=== PATIENT | male | born 1950 | race Caucasian/White ===

== ENCOUNTER 2017-11-06 08:01 | Outpatient (CLI) | payer MEDICARE, OTHER ==
--- NOTE | 2017-11-05 09:10 | Conscious Sedation/ASA ---
Conscious Sedation Pre-Proced Time Reviewed: 09:05 ASA Class: 2 Airway Mallampati Classification: ([place] appropriate class) I. II. III, IV Lungs Heart ASA score ASA 1: a normal healthy patient ASA 2: a patient with a mild systemic disease (mid diabetes, controlled hypertension, obesity ASA 3: a patient with a severe systemic disease that limits activity (angina , COPD, prior Myocardial infarction) ASA 4: a patient with an incapacitating disease that is a constant threat to life (CHF, renal failure) ASA 5: a moribund patient not expected to survive 24 hrs. (ruptured aneurysm) ASA 6: a declared brain patient whose organs are being harvested. For emergent operations, add the letter E after the classification Grade 2 Sedation Plan: Analgesia, Amnesia, Plan communicated to team members, Discussed options with patient/fam, Discussed risks with patient/fam Note The patient is an appropriate candidate to undergo the planned procedure, sedation, and anesthesia. The patient immediately re-assessed prior to indication. VIMAL THURSTON MD Nov 05, 2017 9:10 am
--- NOTE | 2017-11-05 09:11 | Progress Note-Pre Operative ---
Pre-Operative Progress Note H&P Reviewed The H&P was reviewed, patient examined and no changes noted. Date Seen by Provider: Nov 05, 2017 Time Seen by Provider: 09:05 Date H&P Reviewed: Nov 05, 2017 Time H&P Reviewed: 09:05 Pre-Operative Diagnosis: screening colonoscopy VIMAL THURSTON MD Nov 05, 2017 9:10 am
[~2017-11-06] VITALS: Ht 177.8 cm; Wt 86.2 kg
[2017-11-06] MEDS ORDERED: ASPI-586 PO (08:23)
[2017-11-06] MEDS ORDERED: LOSA100T28 PO (08:23)
[2017-11-06] MEDS ORDERED: METO-387 PO (08:23)
[2017-11-06] MEDS ORDERED: CHOL5000 PO (08:23)
[2017-11-06] MEDS ORDERED: FENO135C4 PO (08:23)
== END 2017-11-06 09:17 ==
LOC: PREOP 08:01
PROVIDERS: ATTEND Surgery
DX: Z01.818 Encounter for other preprocedural examination (principal); Z12.11 Encounter for screening for malignant neoplasm of colon

== ENCOUNTER 2017-11-12 09:12 | Day surgery (SDC) | payer MEDICARE, OTHER ==
[~2017-11-12] VITALS: Ht 177.8 cm; Wt 86.2 kg
[~2017-11-12 09:12] MED LIST: ASPI-586 PO; CHOL5000 PO; FENO135C4 PO; LOSA100T28 PO; METO-387 PO
[2017-11-12] MEDS ORDERED: NS IV 500 ML 500 ML IV PRN (09:21)
[2017-11-12] MEDS ORDERED: NS IV 500 ML 500 ML ONE (09:29)
[2017-11-12 09:30] VITALS: BP 144/90
[2017-11-12] MEDS ORDERED: LIDOCAINE JELLY 2% (XYLOCAINE) 5 ML TUBE MM PRN (09:30)
[2017-11-12] MEDS ORDERED: LIDOCAINE JELLY 2% (XYLOCAINE) 5 ML TUBE ONE (10:28)
[2017-11-12] MEDS ORDERED: fentaNYL INJECTION 100 MCG/2 ML AMP ONE ×2 (10:29)
[2017-11-12] MEDS ORDERED: MIDAZOLAM 2 MG/2 ML (VERSED) VIAL ONE ×5 (10:29→11:12)
[2017-11-12] MEDS: fentaNYL INJECTION 100 MCG/2 ML AMP IVP PRN ×4 (10:45→11:12)
--- NOTE | 2017-11-12 10:45 | Conscious Sedation/ASA ---
Conscious Sedation Pre-Proced Time Reviewed: 10:30 ASA Class: 2 Airway Mallampati Classification: ([place] appropriate class) I. II. III, IV Lungs Heart ASA score ASA 1: a normal healthy patient ASA 2: a patient with a mild systemic disease (mid diabetes, controlled hypertension, obesity ASA 3: a patient with a severe systemic disease that limits activity (angina , COPD, prior Myocardial infarction) ASA 4: a patient with an incapacitating disease that is a constant threat to life (CHF, renal failure) ASA 5: a moribund patient not expected to survive 24 hrs. (ruptured aneurysm) ASA 6: a declared brain patient whose organs are being harvested. For emergent operations, add the letter E after the classification Grade 2 Sedation Plan: Analgesia, Amnesia, Plan communicated to team members, Discussed options with patient/fam, Discussed risks with patient/fam Note The patient is an appropriate candidate to undergo the planned procedure, sedation, and anesthesia. The patient immediately re-assessed prior to indication. VIMAL THURSTON MD Nov 12, 2017 10:45 am
--- NOTE | 2017-11-12 10:46 | Progress Note-Pre Operative ---
Pre-Operative Progress Note H&P Reviewed The H&P was reviewed, patient examined and no changes noted. Date Seen by Provider: Nov 12, 2017 Time Seen by Provider: 10:30 Date H&P Reviewed: Nov 12, 2017 Time H&P Reviewed: 10:30 Pre-Operative Diagnosis: screening colonoscopy VIMAL THURSTON MD Nov 12, 2017 10:46 am
[2017-11-12] MEDS ORDERED: ONDANSETRON 4 MG/2 ML (SDV) Z0FRAN IV PRN (11:00)
[2017-11-12] MEDS: MIDAZOLAM 2 MG/2 ML (VERSED) VIAL IVP PRN ×3 (11:00→11:10)
[2017-11-12] MEDS ORDERED: HYDROcodone/APAP 5 MG/325 MG (LORTAB) TAB PO PRN (11:00)
[2017-11-12] MEDS ORDERED: ACETAMINOPHEN 325 MG TABLET/CAPLET (TYLENOL) PO PRN (11:00)
[2017-11-12] MEDS ORDERED: morphine INJ 10 MG/ML 1ML (SYR OR VIAL) IV PRN (11:00)
--- NOTE | 2017-11-12 11:30 | Progress Note-Post Operative ---
Post-Operative Progess Note Surgeon (s)/Hull Line Crew Member (s) Surgeon VIMAL THURSTON MD Hull Line Crew Member: none Pre-Operative Diagnosis screening colonoscopy Post-Operative Diagnosis chronic stage 2 ext and int hemorrhoids. Procedure & Operative Findings Date of Procedure 11/12/17 Procedure Performed/Findings Colonoscopy. Anesthesia Type CS Estimated Blood Loss Estimated blood loss (mL): minimal Specimens/Packing Specimens Removed none VIMAL THURSTON MD Nov 12, 2017 11:30 am
--- NOTE | 2017-11-12 11:32 | Discharge Inst-Surgical ---
D/C Lap Instructions-KARENA Follow Up 10 years Activity as tolerated High Fiber Diet 25g or more per day Avoid Alcohol, Caffeine, Spicy Diablo and Acid foods. Drink 64 fluid oz or more of fluids per day. Symptoms to Report: Fever over 101 degree F, Nausea/Vomiting If any problems/questions: Contact your physician or go to Emergency Room VIMAL THURSTON MD Nov 12, 2017 11:32 am
[2017-11-12 12:10] VITALS: BP 119/78
[2017-11-12 12:40] VITALS: BP 134/72
[2017-11-12 12:46] VITALS: BP 134/72
--- NOTE | 2017-11-12 17:07 | OPERATIVE REPORT ---
DATE OF SERVICE: 11/12/2017 ATTENDING PRIMARY CARE PHYSICIAN: Dr. Marycarmen Musa. PREOPERATIVE DIAGNOSIS: Screening colonoscopy. POSTOPERATIVE DIAGNOSIS: Chronic stage II external and internal hemorrhoids. PROCEDURE: Colonoscopy. SURGEON: Dr. Thurston. ANESTHESIA: Conscious sedation. ESTIMATED BLOOD LOSS: Minimal. FINDINGS: Chronic stage II external and internal hemorrhoids, not actively edematous nor inflamed and no bleeding. Prostate gland was palpable and appeared normal. Remainder of the rectum and colon were normal. There were no polyps or any neoplasms identified. DISPOSITION: The patient tolerated the procedure well. INDICATIONS: The patient is a 67-year-old male in need of a screening colonoscopy. His last colonoscopy was approximately 15 years ago and he remembers this to be normal. He does not report any major issues with diarrhea nor constipation as well as no red blood per rectum nor any dark tarry stools. He also does not report any family history of colon cancer. DESCRIPTION OF PROCEDURE: The patient was brought to the endoscopy suite, laid in the left lateral decubitus position. After adequate IV pain and sedating medications and conscious sedation anesthesia, a digital rectal examination was performed. Chronic stage II external and internal hemorrhoids were identified, which were not actively edematous or inflamed and no bleeding. Normal sphincter tone was felt and there were no palpable masses. The endoscope was then intubated to the anus and rectum gently insufflated. The endoscope was then advanced to the valves of [place] of the rectum with no polyps or neoplasms identified. The endoscope was then advanced through the sigmoid colon where no diverticulosis identified. The endoscope was then advanced through the remainder of the descending, transverse and ascending colon to the cecum. These segments were normal. There were no polyps or any neoplasms identified throughout the colon or rectum. The endoscope was then slowly withdrawn while taking a second look and suctioning of residual air with no additional findings. The patient tolerated the procedure well. We will recommend a high-fiber diet with at least 30 grams of fiber per day as well as at least 64 fluid ounces of water daily to promote soft stools on a daily basis. He does not need another colonoscopy for another 10 years. Job ID: [id number] DocumentID: [id number] Dictated Date: 11/12/2017 11:24:50 Soap Drier Operator Date: 11/12/2017 17:07:20 Dictated By: VIMAL THURSTON MD
== END 2017-11-12 12:48 | disposition home or self-care (01) ==
LOC: ENDO 09:12
PROVIDERS: ATTEND Surgery
DX: Z12.11 Encounter for screening for malignant neoplasm of colon (principal); K64.1 Second degree hemorrhoids; E78.00 Pure hypercholesterolemia, unspecified; I10 Essential (primary) hypertension; Z79.899 Other long term (current) drug therapy; Z87.891 Personal history of nicotine dependence

== ENCOUNTER → 2022-01-10 | Outpatient (CLI) | payer MEDICARE, OTHER ==
[~2022-01-10] MED LIST changes: -LOSA100T28 PO; +LOSA100T57 PO; -METO-387 PO; +MTP25TSR PO
--- NOTE | 2022-01-10 16:49 | Diagnostic Imaging Report ---
INDICATION: CHRONIC COUGH COMPARISON: None FINDINGS: Single frontal view of the chest demonstrates normal heart size and pulmonary vascularity. The lungs show minimal asymmetric opacity within the lateral left base partially obscured left hemidiaphragm. Lungs are otherwise clear. No large pleural effusion or pneumothorax is seen. The visualized osseous structures show no acute abnormalities. IMPRESSION: 1. Probable left basilar atelectasis Dictated by: Dictated on workstation # [id number]
== END ==
LOC: RAD 16:10
PROVIDERS: ATTEND Nurse Practitioner Family
DX: R05.3 Chronic cough (principal)
CPT/HCPCS: 71045

== ENCOUNTER → 2022-01-15 | Outpatient (CLI) | payer MEDICARE, OTHER ==
--- NOTE | 2022-01-15 12:37 | Diagnostic Imaging Report ---
INDICATION: STAGE 3A CHRONIC RENAL DISEASE, HYPERTENSION. TECHNIQUE: Multiple real-time grayscale sonographic images, color and duplex Doppler images were obtained of the urinary system. FINDINGS: Aortic velocity: 84 cm/sec. RIGHT kidney: Size: 9.4 x 5.4 x 5.5 cm Probable cyst inferior lateral pole, 1.4 x 1.6 x 1.4 cm. Renal parenchyma otherwise unremarkable. The right renal artery is visualized in its proximal, mid and distal aspect. Maximum renal artery velocity: 100cm/sec Maximum renal artery/aortic ratio: 1.19 LEFT kidney: Size: 9.7 x 4.5 x 4.7 cm Probable cyst mid pole left kidney 1.0 x 1.0 x 0.9 cm. The left renal artery is visualized in its proximal, mid and distal aspect. Maximum renal artery velocity: 69 cm/sec Maximum renal artery/aortic ratio: 0.82 Bladder: Not imaged. IMPRESSION: 1. Probable bilateral renal cysts. 2. No abnormal Doppler findings to suggest potential renal artery stenosis. (RA/AO ratios > 3.0 may suggest potential hemodynamically significant stenosis.) Dictated by: Dictated on workstation # [id number]
== END ==
LOC: RAD 08:50
DX: I12.9 Hypertensive chronic kidney disease with stage 1 through stage 4 chronic kidney disease, or unspecified chronic kidney disease (principal); N18.31 Chronic kidney disease, stage 3a; E83.9 Disorder of mineral metabolism, unspecified
CPT/HCPCS: 76770; 93975